=== PATIENT | female | born 1970 | race Caucasian/White ===

== ENCOUNTER 2016-12-01 09:12 | Emergency (ER) | payer BC ==
[2016-12-01 09:57] VITALS: BP 122/71
--- NOTE | 2016-12-01 10:22 | UC ---
Respiratory Complaint HPI - HPI Summary HPI Summary: About [address] and PND. [address] this way for 3-4 days, then developed fever x 4 days with cough and heavy chest. Saw PCP 2 days ago, was put on ceftin for bronchitis, and here for recheck because she doesn't feel better. Fevers have resolved x 3 days. Denies wheezing, but chest feels tight. - History of Current Complaint Chief Complaint: UCGeneralIllness Stated Complaint: COUGH/FEVER Time Seen by Provider: 12/01/16 10:00 Hx Obtained From: Patient Hx Last Menstrual Period: 11/24/16 ?: No Onset/Duration: Gradual Onset, Lasting Days Timing: Constant Severity Initially: Mild Severity Currently: Moderate Character: Cough: Nonproductive Aggravating Factors: Deep Breaths, Recumbent Position Alleviating Factors: Upright Position Associated Signs And Symptoms: Positive: Fever, Chills, URI, Nasal Congestion. Negative: Wheezing - Allergies/Home Medications Allergies/Adverse Reactions: Allergies Allergy/AdvReac Type Severity Reaction Status Date / Time Erythromycin Allergy Mild Itching Verified 12/01/16 09:39 Oxycodone AdvReac Intermediate Nausea Verified 12/01/16 09:39 Sulfa Drugs AdvReac Intermediate Nausea Verified 12/01/16 09:39 Home Medications: Home Medications Cefdinir cap (NF) [Cefdinir 300 MG cap (NF)] 300 mg PO BID 12/01/16 [History Confirmed 12/01/16] PMH/Surg Hx/FS Hx/Imm Hx Endocrine History Of: Denies: Diabetes, Thyroid Disease Cardiovascular History Of: Denies: Cardiac Disorders, Hypertension, Pacemaker/ICD, Congestive Heart Failure Respiratory History Of: Denies: COPD, Asthma GI/ History Of: Denies: Gastroesophageal Reflux, Renal Disease Neurological History Of: Denies: CVA, Dementia, Seizures Cancer History Of: Denies: Breast Cancer Other History Of: Negative For: Anticoagulant Therapy - Surgical History Surgical History: Yes Surgery Procedure, Year, and Place: TONSILS, TUBAL, GANGLION CYST REMOVAL - Family History Known Family History: Positive: Unknown - Social History Occupation: Employed Full-time Alcohol Use: None Substance Use Type: None Smoking Status (MU): Never Smoked Tobacco - Immunization History Most Recent Influenza Vaccination: April 2015 Review of Systems Constitutional: Fever, Chills Skin: Negative Eyes: Negative ENT: Sore Throat, Nasal Discharge Respiratory: Shortness Of Breath, Cough Cardiovascular: Negative Gastrointestinal: Negative Genitourinary: Negative Motor: Negative Neurovascular: Negative Musculoskeletal: Negative Neurological: Negative Psychological: Negative All Other Systems Reviewed And Are Negative: Yes Physical Exam Triage Information Reviewed: Yes Appearance: No Pain Distress, Obese Vital Signs: Initial Vital Signs Temp 98.7 F 12/01/16 09:42 Pulse 109 12/01/16 09:42 Resp 16 12/01/16 09:42 BP 122/71 12/01/16 09:42 Pulse Ox 96 12/01/16 09:42 Vital Signs Reviewed: Yes Eye Exam: Normal Eyes: Positive: Conjunctiva Clear ENT: Positive: Hearing grossly normal, Pharynx normal, Nasal congestion. Negative: Tonsillar swelling - s/p tonsillectomy Dental Exam: Normal Neck exam: Normal Neck: Positive: Supple, Nontender, No Lymphadenopathy Respiratory: Positive: No accessory muscle use, Wheezing - at bases Cardiovascular: Positive: Tachycardia Musculoskeletal Exam: Normal Musculoskeletal: Positive: Strength Intact, ROM Intact Neurological Exam: Normal Neurological: Positive: Alert Psychological Exam: Normal Skin Exam: Normal UC Diagnostic Evaluation - Laboratory O2 Sat by Pulse Oximetry: 96 Respiratory Course/Dx - Differential Dx/Diagnosis Provider Diagnoses: bronchitis. blood pressure elevated due to discomfort Discharge - Discharge Plan Condition: Stable Disposition: HOME Prescriptions: Albuterol HFA INHALER* [Ventolin HFA Inhaler*] 1 - 2 puff INH Q4H PRN #1 mdi PRN Reason: wheeze, cough Benzonatate CAP* [Tessalon CAP*] 100 mg PO TID PRN #30 cap PRN Reason: Cough predniSONE TAB* [Deltasone TAB*] 50 mg PO DAILY #3 tab Patient Education Materials: Acute Bronchitis (ED) Referrals: Aubrey Samuels MD [Primary Care Provider] - Additional Instructions: No sign of pneumonia on x-ray. As we discussed, you can safely discontinue the antibiotic, as your symptoms do not have bacterial features. If you choose to continue, take it until it is gone. Call or return if you develop increasing fever, shortness of breath, chest pain , bloody sputum, or otherwise worsen. If you have not improved at all after several days, contact your primary care physician or return here. INHALED BRONCHODILATORS: You have received a prescription for an inhaled bronchodilator -- a medication which stimulates the airways in the lung to dilate. This improves the flow of air in asthma, bronchitis, and emphysema. These medicines have some similarity to adrenaline, and can cause similar side effects: shakiness, racing heart, and a sense of nervousness. These side effects can be reduced with the use of a spacer and usually decrease with time. Use 1-2 puffs up to every 4 hours as needed for wheezing or tightness in your chest. It may be helpful to use preventatively, such as before bedtime or before going outside into cold air. IF YOU FIND THAT YOU ARE CONSISTENTLY NEEDING THE INHALER MORE THAN 6 TIMES PER DAY, PLEASE CALL OR RETURN FOR FURTHER EVALUATION. TESSALON: You have received a prescription for Tessalon Perles (benzonatate). This is a non-narcotic medicine for relief of cough. It usually works in about 15- 20 minutes and lasts around four hours. When they work, they are usually helpful with a lingering cough at the end of an illness. If you do not find them helpful now, wait several days and try again, as they may help your cough later on. Tessalon Perles should be swallowed. They should not be chewed or dissolved in the mouth (this can produce temporary numbing of the mouth and choking can occur). If you develop any adverse effects such as wheezing, shortness of breath, hives, rash, itching, or lightheadedness, please return at once. CORTICOSTEROID MEDICATION: You have been given a medicine of the cortisone class. This medication is used to control inflammation or allergy. It is usually only given for a short period of time, until the acute process subsides. There are usually no side effects from short-term use of cortisone-like medications. Some persons feel an increased sense of well-being and are not sleepy at bedtime. Long-term use of cortisone medications is best avoided, unless required for a severe condition. If your condition does not remit, or relapses after the course of corticosteroid medication, you should consult your physician. Contact the physician if you develop lightheadedness, black or tarry stools , swelling of the legs, or significant rapid change in weight.
[2016-12-01] MEDS ORDERED: Albuterol 2.5 MG/3 ML NEB.SOL* (0.083%) INH ONE (10:26)
--- NOTE | 2016-12-01 10:47 | RAD ---
INDICATION: Cough and fever COMPARISON: Chest x-ray May 09, 2010 TECHNIQUE: PA and lateral dual-energy views were obtained. FINDINGS: Bones/Soft Tissues: There are no acute bony findings. Cardiomediastinal: The cardiomediastinal silhouette is normal. Lungs: There are no infiltrates. Pleura: There are no pleural effusions. Other: None IMPRESSION: NORMAL CHEST
== END 2016-12-01 11:15 | disposition home or self-care (01) ==
LOC: UCCORT 09:12
DX: J40 Bronchitis, not specified as acute or chronic (principal); R03.0 Elevated blood-pressure reading, without diagnosis of hypertension; E66.9 Obesity, unspecified; Z88.1 Allergy status to other antibiotic agents; Z88.5 Allergy status to narcotic agent; Z88.2 Allergy status to sulfonamides
CPT/HCPCS: 71020; 99212; G0463

== ENCOUNTER 2019-01-28 11:38 | Emergency (ER) | payer BC, OTHER ==
[2019-01-28] MEDS ORDERED: Naproxen TAB* 250 MG PO ONE (12:28)
[2019-01-28 12:30] VITALS: BP 158/70
--- NOTE | 2019-01-28 13:00 | UC ---
Lower Extremity/Ankle HPI - HPI Summary HPI Summary: 48-year-old female presents with complaints of right ankle and foot pain. States just prior to arrival she accidentally stepped off the edge of a sidewalk causing an inversion injury. She has been unable to bear weight since the injury. Denies any numbness or tingling. - History of Current Complaint Chief Complaint: UCLowerExtremity Stated Complaint: ANKLE INJURY Time Seen by Provider: 01/28/19 12:21 Hx Obtained From: Patient Hx Last Menstrual Period: january 12 Pain Intensity: 7 - Allergies/Home Medications Allergies/Adverse Reactions: Allergies Allergy/AdvReac Type Severity Reaction Status Date / Time erythromycin base Allergy Itching Verified 01/28/19 12:17 oxycodone Allergy Nausea Verified 01/28/19 12:17 Sulfa (Sulfonamide Allergy Nausea Verified 01/28/19 12:17 Antibiotics) Home Medications: Home Medications Ascorbic Acid TAB* [Vitamin C TAB*] 500 mg PO DAILY 01/28/19 [History Confirmed 01/28/19] Ferrous Gluconate [Iron] 325 mg PO DAILY 01/28/19 [History Confirmed 01/28/19] Polyethylene Glycol 3350* [Miralax*] 1 packet PO DAILY 01/28/19 [History Confirmed 01/28/19] PMH/Surg Hx/FS Hx/Imm Hx Previously Healthy: Yes Other History Of: Negative For: Anticoagulant Therapy - Surgical History Surgical History: Yes Surgery Procedure, Year, and Place: TONSILS, TUBAL, GANGLION CYST REMOVAL - Family History Known Family History: Positive: Non-Contributory - Social History Occupation: Employed Full-time Lives: With Family Alcohol Use: Rare Substance Use Type: None Smoking Status (MU): Never Smoked Tobacco - Immunization History Most Recent Influenza Vaccination: April 2015 Review of Systems All Other Systems Reviewed And Are Negative: Yes Constitutional: Positive: Negative Skin: Negative: Bruising Respiratory: Positive: Negative Cardiovascular: Positive: Negative Gastrointestinal: Positive: Negative Genitourinary: Positive: Negative Motor: Negative: Weakness Neurovascular: Negative: Decreased Sensation Musculoskeletal: Positive: Other: - See HPI Neurological: Positive: Negative Is Patient Immunocompromised?: No Physical Exam - Summary Physical Exam Summary: GENERAL APPEARANCE: Well developed, well nourished, alert and cooperative, and appears to be in no acute distress. CARDIAC: Normal S1 and S2. No S3, S4 or murmurs. Rhythm is regular. There is no peripheral edema, cyanosis or pallor. Extremities are warm and well perfused. Capillary refill is less than 2 seconds. Peripheral pulses intact. LUNGS: Clear to auscultation without rales, rhonchi, wheezing or diminished breath sounds. ABDOMEN: Positive bowel sounds. Soft, nondistended, nontender. No guarding or rebound. No masses or hepatosplenomegally. MUSKULOSKELETAL: Normal muscular development. Non-weightbearing. EXTREMITIES: Tenderness and swelling over the right lateral malleolus without gross deformity or ecchymosis. Tenderness also noted to the lateral right foot over the 5th metatarsal without gross deformity, ecchymosis, or edema. Circulation and sensation intact. SKIN: Skin normal color, texture and turgor. Triage Information Reviewed: Yes Vital Signs: Initial Vital Signs Temp 98.5 F 01/28/19 12:21 Pulse 88 01/28/19 12:21 Resp 16 01/28/19 12:21 BP 158/70 01/28/19 12:21 Pulse Ox 98 01/28/19 12:21 Vital Signs Reviewed: Yes Diagnostics - Radiology No standard instances Radiology Interpretation Completed By: Radiologist Summary of Radiographic Findings: Order Information: FOOT RIGHT 3+ VWS. Accession Number: [id number]. CPT: 54883. Indication: Lateral RIGHT foot and ankle pain along the fifth metatarsal following rolling injury. Comparison: No relevant prior exams available on the [facility] PACS for comparison. Technique: AP, lateral, and oblique views of the RIGHT foot. AP, mortise, and lateral views RIGHT ankle. Report: Normal articular alignment at the ankle and foot. No fracture or osteochondral lesion evident. Talocrural joint effusion and moderate soft tissue swelling over the lateral malleolus. IMPRESSION: #. Negative for fracture or malalignment at the ankle or foot. #. Consider potential lateral supporting ligament injury at the ankle giving joint effusion and predominant lateral soft tissue swelling. Lower Extremity Course/Dx - Course Course Of Treatment: 48-year-old female presents with complaints of right ankle and foot pain. States just prior to arrival she accidentally stepped off the edge of a sidewalk causing an inversion injury. She has been unable to bear weight since the injury. Denies any numbness or tingling. Afebrile. Hypertensive otherwise vital signs stable. Patient had tenderness and swelling over the right lateral malleolus without gross deformity or ecchymosis as wel as tenderness to the lateral right foot over the 5th metatarsal without gross deformity, ecchymosis, or edema. Circulation and sensation were intact. X-ray showed no fracture or osteochondral lesion evident however there was a talocrural joint effusion with moderate soft tissue swelling over the lateral malleolus. Will treat patient for a right ankle and foot sprain. She was placed in a CAM boot when necessary. Circulation sensation were intact. Post- application. Patient was provided crutches and instructed to be nonweightbearing for the next 2 days and then begin progressive weightbearing as tolerated. She was given a prescription for naproxen 500 mg twice a day 5 days then as needed and recommended RICE. She is to follow-up with orthopedic surgery in 7 days if symptoms are not improving. Anticipatory guidance and warning symptoms are reviewed with the patient. Verbalizes understanding and agrees with plan of care. - Differential Dx/Diagnosis Differential Diagnosis/HQI/PQRI: Contusion, Dislocation, Fracture (Closed), Sprain Provider Diagnosis: Right ankle sprain, Right foot sprain Discharge - Sign-Out/Discharge Documenting (check all that apply): Patient Departure All imaging exams completed and their final reports reviewed: No Studies - Discharge Plan Condition: Stable Disposition: HOME Prescriptions: Naproxen [Naproxen 500 mg tab] 500 mg PO Q12HR #30 tablet Patient Education Materials: Ankle Sprain (ED), Crutch Instructions (ED) Referrals: Aubrey Samuels MD [Primary Care Provider] - Minal Denson MD [Medical Doctor] - 7 Days Additional Instructions: The x-ray performed in the clinic today showed no evidence of a fracture. I suspect that you have a sprain of the ankle and foot. Rest the foot as much as possible. You should remain non-weightbearing for the next 2 days then may progressively increase weightbearing as tolerated. Use the crutches that were provided to you. Use the CAM boot that was applied in the clinic today for comfort and support. Apply ice to the affected area for 15-20 minutes at least 4 times a day to help with the pain and swelling. Elevate the foot to help reduce swelling. Take naproxen 500 mg 1 tab every 12 hours with food for the next 5 days then may take every 12 hours as needed for pain. Follow up with orthopedic surgery in 7 days if symptoms do not improve. Call for appointment. Seek immediate medical attention if you have severe pain not managed with pain medication, you are unable to walk or bear any weight, develop numbness or tingling in the foot or toes, or have any worsening of symptoms. - Billing Disposition and Condition Condition: STABLE Disposition: Home
== END 2019-01-28 13:46 | disposition home or self-care (01) ==
LOC: UCEAST 11:38
DX: S93.401A Sprain of unspecified ligament of right ankle, initial encounter (principal); X50.0XXA Overexertion from strenuous movement or load, initial encounter; Y93.9 Activity, unspecified; Y92.410 Unspecified street and highway as the place of occurrence of the external cause; S93.601A Unspecified sprain of right foot, initial encounter
CPT/HCPCS: 99212; A9270-GY; G0463